=== PATIENT | male | born 1945 | race Caucasian/White ===

== ENCOUNTER 2017-01-15 10:40 | Inpatient (IN) | payer OTHER ==
[~2017-01-15] VITALS: Ht 170.2 cm; Wt 70.0 kg
[~2017-01-15 10:40] MED LIST: ADULT LOW DOSE81 M1 PO; ALBUTEROL17 GM IH; ALDACTONE50 MG PO; ALLOPURINOL100 MG PO; AMMONIUM LACTA140 GM TP; ANTARA130 MG PO; APRESOLINE50 M1 PO; ASPIR 8181 M1 PO; ASPIRIN81 M1 PO; Aldactone PO; Aspirin E.C. PO; COUMADIN,JANTOVE5 MG PO; COUMADIN5 MG PO; Coumadin,Jantoven PO; DESYREL100 MG PO; DIGITEK250 MC1 PO; DIGOXIN125 MCG PO; FENOFIBRATE134 M1 PO; FENOFIBRATE160 M1 PO; FISH OIL 1,001000 M1 PO; FISH OIL CONC1 EACH PO; FUROSEMIDE40 MG PO; GABAPENTIN300 MG PO; HUMULIN R100 UNITS/ SC; HUMULIN R500 UNITS/ IM; HYDRALAZINE HCL25 M1 PO; HYDRALAZINE HCL25 MG PO; Humibid LA,Mucinex PO; LANOXIN,DIGIT0.25 MG PO; LANTUS 3 M100 UNITS1 SC; LASIX40 MG PO; LASIX80 MG PO; LISINOPRIL10 MG PO; Lasix PO; METOLAZONE5 MG PO; MUCINEX600 MG PO; NASONEX17 GM NS; NIACIN500 MG PO; NOVOLOG 10100 UNITS/ IV; NOVOLOG PE100 UNITS/ SC; NOVOLOG100 UNIT/2; Neurontin PO; Niacin PO; Omega III EPA + DHA PO; ROBITUSSIN100 MG/5 M PO; SILVADENE20 GM TP; SIMVASTATIN40 M1 PO; SIMVASTATIN40 MG PO; SYMBICORT60 INHALAT IH; Symbicort 160-4.5 mc IH; TENORMIN25 MG PO; TRAZODONE HCL100 MG PO; Tenormin PO; Tylenol Regular Stre PO; VENTOLIN HFA18 GM IH; VITAMIN D35000 UNIT PO; Vitamin D PO; XARELTO15 MG PO; ZAROXOLYN,DIULO5 MG PO; ZESTRIL,PRINIVI10 M1 PO; ZYLOPRIM100 MG PO; Zocor PO; [UNRECOGNIZED DRUG - OTHER] PO; [UNRECOGNIZED DRUG - OTHER] TP
[2017-01-15 11:17] LABS: EOSINOPHIL (%) 0.2 % (0-5); HEMATOCRIT 43.7 % (38.0-50.0); IMMATURE GRANULOCYTE (%) 0.6 % (0.0-0.7); IMMATURE GRANULOCYTE COUNT 0.1 K/uL; INSTRUMENT ABS NEUTROPHIL CT 9.1 K/uL; MCH 31.1 PG (29.0-34.0); MCHC 33.4 G/DL (30.0-36.0); MEAN PLAT.VOLUME 10.9 uM^3 (9.0-12.4); MONOCYTE (%) 3.7 % (3-12); MONOCYTE COUNT 0.4 K/uL (0-0.8); NEUTROPHIL (%) 85.6 % (45-76); NEUTROPHIL COUNT 9.1 K/uL (1.8-6.4); PLATELET COUNT 260 K/uL (156-360); RBC DIS.WIDTH-CV 12.8 % (11.8-14.6); WHITE BLOOD COUNT 10.6 K/uL (4.1-10.2)
[2017-01-15 11:23] LABS: INTER. NORMALIZED RATIO 1.5; PROTHROMBIN TIME 17.1 SEC (10.2-12.9)
[2017-01-15 11:26] LABS: CHLORIDE 93 mEq/L (99-109); POTASSIUM 4.8 mEq/L (3.7-5.4); PTT 27.2 SEC (25-37); SODIUM 134 mEq/L (136-147)
[2017-01-15 11:27] LABS: MAGNESIUM 2.6 mg/dL (1.3-2.7)
[2017-01-15 11:28] LABS: GLUCOSE 224 mg/dL (70-99)
[2017-01-15 11:30] LABS: ANION GAP 21 MEQ/L (2-14)
[2017-01-15 11:32] LABS: GFR ESTIMATE (CALCULATED) 35 mL/min/
[2017-01-15 11:33] LABS: UREA NITROGEN (BUN) 74 mg/dL (9-23)
[2017-01-15 11:37] LABS: TROP-I INTERPRETATION INDETERMINATE; TROPONIN-I 0.31 ng/mL (0.0-0.30)
[2017-01-15] MEDS ORDERED: ALDACTONE50 MG PO (14:48)
[2017-01-15] MEDS ORDERED: RANITIDINE HCL150 MG PO (14:48)
[2017-01-15] MEDS ORDERED: ACETAZOLAMIDE125 MG PO (14:49)
[2017-01-15] MEDS ORDERED: BUMETANIDE1 MG PO (14:49)
[2017-01-15] MEDS ORDERED: BUMEX1 MG PO (14:50)
[2017-01-15] MEDS ORDERED: TRAMADOL HCL50 MG PO (14:51)
[2017-01-15] MEDS ORDERED: ATROVENT H200 INHALA IH (14:52)
[2017-01-15 16:33] VITALS: BP 130/56
[2017-01-15 17:23] LABS: POINT-OF-CARE METER ID UU13113781
[2017-01-15 17:24] LABS: TROP-I INTERPRETATION INDETERMINATE; TROPONIN-I 0.35 ng/mL (0.0-0.30)
[2017-01-15 19:41] VITALS: BP 114/59
[2017-01-15 21:20] LABS: POINT-OF-CARE METER ID UU14314088
[2017-01-15 22:56] VITALS: BP 116/64
[2017-01-15 23:59] LABS: TROP-I INTERPRETATION INDETERMINATE; TROPONIN-I 0.32 ng/mL (0.0-0.30)
[2017-01-16] LABS: POINT-OF-CARE METER ID UU13113781
[2017-01-16 04:22] VITALS: BP 130/68
[2017-01-16 05:24] LABS: HEMATOCRIT 36.8 % (38.0-50.0); MCH 31.5 PG (29.0-34.0); MCHC 34.2 G/DL (30.0-36.0); PLATELET COUNT 199 K/uL (156-360); RBC DIS.WIDTH-CV 12.9 % (11.8-14.6); RBC DIS.WIDTH-SD 43.3 % (39-53); WHITE BLOOD COUNT 8.4 K/uL (4.1-10.2)
[2017-01-16 05:47] LABS: ANION GAP 11 MEQ/L (2-14); CHLORIDE 98 MEQ/L (99-109); GFR ESTIMATE (CALCULATED) 42 mL/min/; SAMPLE HEMOLYSIS CHECK 0; SAMPLE ICTERIC CHECK 0; SAMPLE LIPEMIA CHECK 0; SODIUM 138 MEQ/L (136-147); UREA NITROGEN (BUN) 71 mg/dL (9-23)
[2017-01-16 05:48] LABS: GLUCOSE 107 mg/dL (70-99); POTASSIUM 3.5 MEQ/L (3.7-5.4)
[2017-01-16 08:17] LABS: POINT-OF-CARE METER ID UU13113698; POINT-OF-CARE USER ID ENVKC36
[2017-01-16 08:20] VITALS: BP 119/56
[2017-01-16 12:05] LABS: POINT-OF-CARE METER ID UU14314088; POINT-OF-CARE USER ID ENVKC36
[2017-01-16 12:14] VITALS: BP 120/63
[2017-01-16 16:40] VITALS: BP 116/58
[2017-01-16 17:09] LABS: POINT-OF-CARE METER ID UU14174216; POINT-OF-CARE USER ID NUTSLF44
[2017-01-16 20:38] VITALS: BP 113/66
[2017-01-16 21:14] LABS: POINT-OF-CARE METER ID UU13113781
[2017-01-17] VITALS: BP 128/66
[2017-01-17 04:00] VITALS: BP 124/74
[2017-01-17 05:20] LABS: HEMATOCRIT 35.8 % (38.0-50.0); MCH 31.9 PG (29.0-34.0); MCHC 34.4 G/DL (30.0-36.0); MEAN PLAT.VOLUME 10.9 uM^3 (9.0-12.4); PLATELET COUNT 226 K/uL (156-360); RBC DIS.WIDTH-CV 13.2 % (11.8-14.6); RBC DIS.WIDTH-SD 44.9 % (39-53); RED BLOOD COUNT 3.85 M/uL (4.00-5.50); WHITE BLOOD COUNT 10.2 K/uL (4.1-10.2)
[2017-01-17 05:53] LABS: ANION GAP 8 MEQ/L (2-14); CHLORIDE 104 MEQ/L (99-109); GFR ESTIMATE (CALCULATED) > 59 mL/min/; GLUCOSE 52 mg/dL (70-99); POTASSIUM 3.3 MEQ/L (3.7-5.4); SAMPLE HEMOLYSIS CHECK 0; SAMPLE ICTERIC CHECK 0; SAMPLE LIPEMIA CHECK 0; SODIUM 137 MEQ/L (136-147); UREA NITROGEN (BUN) 50 mg/dL (9-23)
[2017-01-17 07:22] VITALS: BP 127/60
[2017-01-17 07:59] LABS: POINT-OF-CARE METER ID UU14314088
[2017-01-17 11:38] LABS: POINT-OF-CARE METER ID UU14314088
[2017-01-17 11:54] VITALS: BP 117/60
[2017-01-17] MEDS ORDERED: CORDARONE200 MG PO (13:04)
[2017-01-17] MEDS ORDERED: CARVEDILOL3.125 MG PO (13:04)
[2017-01-17] MEDS ORDERED: K-DUR20 MEQ PO (13:05)
== END 2017-01-17 15:34 | disposition home or self-care (01) | DRG 309 ==
LOC: EME 10:40 → EDOF 14:54 → 4EAST 14:54 → ENRESERV 14:56 → 4EAST 15:51
PROVIDERS: Emergency Medicine; Internal Medicine
DX: I49.01 Ventricular fibrillation (principal); I50.22 Chronic systolic (congestive) heart failure; I13.0 Hypertensive heart and chronic kidney disease with heart failure and stage 1 through stage 4 chronic kidney disease, or unspecified chronic kidney disease; E87.2 Acidosis; N17.9 Acute kidney failure, unspecified; I48.0 Paroxysmal atrial fibrillation; E11.22 Type 2 diabetes mellitus with diabetic chronic kidney disease; E78.5 Hyperlipidemia, unspecified; E87.6 Hypokalemia; F17.210 Nicotine dependence, cigarettes, uncomplicated; I34.0 Nonrheumatic mitral (valve) insufficiency; I42.0 Dilated cardiomyopathy; I27.20 Pulmonary hypertension, unspecified; E86.0 Dehydration; E11.40 Type 2 diabetes mellitus with diabetic neuropathy, unspecified; I25.10 Atherosclerotic heart disease of native coronary artery without angina pectoris; I25.5 Ischemic cardiomyopathy; I47.2 Ventricular tachycardia; J44.9 Chronic obstructive pulmonary disease, unspecified; N18.3 Chronic kidney disease, stage 3 (moderate); I36.1 Nonrheumatic tricuspid (valve) insufficiency; R63.4 Abnormal weight loss; R63.0 Anorexia; Z79.4 Long term (current) use of insulin; Z88.1 Allergy status to other antibiotic agents; Z95.810 Presence of automatic (implantable) cardiac defibrillator; Z88.5 Allergy status to narcotic agent; Z79.01 Long term (current) use of anticoagulants; Z79.82 Long term (current) use of aspirin; Z79.51 Long term (current) use of inhaled steroids; Z68.24 Body mass index [BMI] 24.0-24.9, adult; Z88.0 Allergy status to penicillin; Z82.49 Family history of ischemic heart disease and other diseases of the circulatory system
CPT/HCPCS: 71010; 80048; 82948; 83605; 83735; 84100; 84484; 85025; 85027; 85610; 85730; 90686; 92610 GN; 93005; 93306; 94640; 94640 76; 94799; 99281; 99285; J1815; J7030